=== PATIENT | female | born 1960 | race Caucasian/White ===

== ENCOUNTER 2023-12-05 17:50 | Emergency (ER) | payer BC, MEDICAID ==
[~2023-12-05] VITALS: Ht 157.5 cm; Wt 66.2 kg
[2023-12-05] MEDS: TETANUS/DIPHTHERIA TOXOID [ADULT] 0.5 ML VIAL IM ONE (19:00)
[2023-12-05] MEDS: ACETAMINOPHEN 500 MG TABLET PO ONE (19:01)
[2023-12-05 19:10] VITALS: BP 142/74; PULSE 74; RESP 16; O2SAT 98
[2023-12-05] MEDS: OCTYL 2-CYANOACRYLATE 1 EACH TP SCH (19:40)
== END 2023-12-05 20:37 | disposition home or self-care (01) ==
LOC: EDH 17:50
DX: S61.210A Laceration without foreign body of right index finger without damage to nail, initial encounter (principal); E78.00 Pure hypercholesterolemia, unspecified; I10 Essential (primary) hypertension; I25.10 Atherosclerotic heart disease of native coronary artery without angina pectoris; Z98.890 Other specified postprocedural states; W26.8XXA Contact with other sharp object(s), not elsewhere classified, initial encounter; Y93.89 Activity, other specified; Y92.89 Other specified places as the place of occurrence of the external cause; Y99.8 Other external cause status
CPT/HCPCS: 12001; 90471; 90714